=== PATIENT | male | born 1975 | race Caucasian/White ===

== ENCOUNTER 2017-11-10 11:26 | Emergency (ER) | payer MEDICARE, OTHER ==
[~2017-11-10] VITALS: Ht 175.3 cm; Wt 67.0 kg
[2017-11-10] MEDS ORDERED: nicotine 14mg patch - 24hr TD ONE (11:35)
[2017-11-10 12:12] VITALS: BP 132/99
== END 2017-11-10 12:16 | disposition home or self-care (01) ==
LOC: ER 11:26
DX: Z02.89 Encounter for other administrative examinations (principal)
CPT/HCPCS: 99281